=== PATIENT | male | born 1945 | race Caucasian/White ===

== ENCOUNTER 2019-11-28 10:51 | Outpatient (CLI) | payer OTHER, SELFPAY ==
[2019-11-28 11:38] LABS: Basophils Absolute Auto 0.1 K/mm3 (0.0-0.1); Basophils Percent Auto 1.4 % (0.2-1.2); Eosinophils Absolute Auto 0.1 K/mm3 (0-0.3); Eosinophils Percent Auto 1.9 % (0-4.4); Hematocrit 44.1 % (42.0-52.0); Hemoglobin 14.6 g/dL (14.0-18.0); Immature Granulocyte Absolute 0.03 K/mm3 (0.00-0.031); Immature Granulocyte Percent A 0.5 % (0-0.5); Lymphocytes Absolute Auto 1.83 K/mm3 (0.9-3.2); Lymphocytes Percent Auto 28.5 % (18.3-44.2); Mean Corpuscular HGB Conc 33.1 g/dl (32-36); Mean Corpuscular Hemoglobin 29.3 pg (26-34); Mean Corpuscular Volume 88.6 fl (80-100); Mean Platelet Volume 9.9 fl (7.4-10.4); Monocytes Absolute Auto 0.5 K/mm3 (0.1-0.6); Neutrophils Absolute Auto 3.9 K/mm3 (1.3-6.7); Neutrophils Percent Auto 60.7 % (45.5-73.1); Platelet Count Result 209 k/mm3 (150-375); Red Blood Count 4.98 M/mm3 (4.6-6.20); Red Cell Distribution Width 13.2 % (11.5-14.5); White Blood Count 6.4 K/mm3 (4.5-10.0)
[2019-11-28 11:53] LABS: Alanine Aminotransferase 18 U/L (4-50); Albumin Level 4.1 g/dL (3.5-5.1); Alkaline Phosphatase 87 U/L (38-126); Anion Gap 6 mmol/L (8-16); Aspartate Amino Transferase 22 U/L (17-59); Bilirubin,Total 0.3 mg/dL (0.2-1.3); Blood Urea Nitrogen 19 mg/dL (9-20); Calcium 8.8 mg/dL (8.4-10.2); Carbon Dioxide 31 mmol/L (22-30); Chloride 102 mmol/L (98-107); Cholesterol 178 mg/dL (0-200); Estimated Glomerular Filt Rate 59; Glucose 101 mg/dL (75-110); HDL Direct 38 mg/dL; Potassium 4.5 mmol/L (3.4-5.0); Sodium 139 mmol/L (137-145); Triglycerides 96 mg/dL (<150)
[2019-11-28 11:58] LABS: Hemoglobin A1C 5.9 % (<5.7)
[2019-11-28 12:04] LABS: LDL Cholesterol Direct 119 mg/dL
[2019-11-28 12:44] LABS: Creatinine Urine 163.1 mg/dL
[2019-11-28 12:48] LABS: MALB Creatinine Ratio 5.5 mg/g (0-30); Microalbumin Urine Random 8.9 mg/L (0-16.7)
== END 2019-11-28 10:52 | disposition home or self-care (01) ==
PROVIDERS: PCP Internal Medicine; Visit Provider Internal Medicine
DX: E78.5 Hyperlipidemia, unspecified (principal); R73.01 Impaired fasting glucose; Z86.73 Personal history of transient ischemic attack (TIA), and cerebral infarction without residual deficits; I10 Essential (primary) hypertension
CPT/HCPCS: 36415; 80053; 80061; 82043; 83036; 84443; 85025

== ENCOUNTER 2020-07-30 10:51 | Outpatient (CLI) | payer MEDICARE, SELFPAY ==
[2020-07-30 11:28] LABS: Basophils Absolute Auto 0.1 K/mm3 (0.0-0.1); Eosinophils Absolute Auto 0.1 K/mm3 (0-0.3); Eosinophils Percent Auto 1.9 % (0-4.4); Hematocrit 42.1 % (42.0-52.0); Hemoglobin 13.9 g/dL (14.0-18.0); Immature Granulocyte Absolute 0.02 K/mm3 (0.00-0.031); Immature Granulocyte Percent A 0.3 % (0-0.5); Lymphocytes Absolute Auto 1.65 K/mm3 (0.9-3.2); Lymphocytes Percent Auto 23.7 % (18.3-44.2); Mean Corpuscular Volume 90.7 fl (80-100); Mean Platelet Volume 9.3 fl (7.4-10.4); Monocytes Absolute Auto 0.6 K/mm3 (0.1-0.6); Monocytes Percent Auto 8.2 % (2.6-8.5); Neutrophils Absolute Auto 4.5 K/mm3 (1.3-6.7); Neutrophils Percent Auto 64.9 % (45.5-73.1); Platelet Count Result 204 k/mm3 (150-375); Red Blood Count 4.64 M/mm3 (4.6-6.20); Red Cell Distribution Width 13.2 % (11.5-14.5)
[2020-07-30 11:42] LABS: Alanine Aminotransferase 18 U/L (4-50); Albumin Level 3.8 g/dL (3.5-5.1); Alkaline Phosphatase 71 U/L (38-126); Anion Gap 4 mmol/L (8-16); Aspartate Amino Transferase 25 U/L (17-59); Bilirubin,Total 0.5 mg/dL (0.2-1.3); Blood Urea Nitrogen 20 mg/dL (9-20); Calcium 8.8 mg/dL (8.4-10.2); Carbon Dioxide 31 mmol/L (22-30); Chloride 105 mmol/L (98-107); Cholesterol 158 mg/dL (0-200); Estimated Glomerular Filt Rate 54; Glucose 99 mg/dL (75-110); HDL Direct 39 mg/dL; Potassium 4.4 mmol/L (3.4-5.0); Sodium 140 mmol/L (137-145); Triglycerides 93 mg/dL (<150)
[2020-07-30 11:43] LABS: Hemoglobin A1C 5.8 % (<5.7)
[2020-07-30 11:54] LABS: LDL Cholesterol Direct 98 mg/dL
[2020-07-30 12:14] LABS: Creatinine Urine 163.2 mg/dL
[2020-07-30 12:14] LABS: Prostate Specific Antigen 0.6 ng/mL (< OR = 4.0)
[2020-07-30 12:18] LABS: MALB Creatinine Ratio 5.6 mg/g (0-30); Microalbumin Urine Random 9.1 mg/L (0-16.7)
[2020-07-30 12:28] LABS: Vitamin D 25 Hydroxy 24.8 ng/mL
[2020-07-30 12:47] LABS: Folic Acid 15.1 ng/mL (2.76->20)
== END 2020-07-30 10:52 | disposition home or self-care (01) ==
PROVIDERS: PCP Internal Medicine; Visit Provider Internal Medicine
DX: E78.5 Hyperlipidemia, unspecified (principal); I10 Essential (primary) hypertension; N40.1 Benign prostatic hyperplasia with lower urinary tract symptoms; R35.0 Frequency of micturition; I72.5 Aneurysm of other precerebral arteries; I25.10 Atherosclerotic heart disease of native coronary artery without angina pectoris; R73.01 Impaired fasting glucose; G25.81 Restless legs syndrome
CPT/HCPCS: 36415; 80053; 80061; 82043; 82306; 82607; 82746; 83036; 84153; 85025; G0103

== ENCOUNTER 2020-08-06 14:07 | Outpatient (CLI) | payer MEDICARE, SELFPAY ==
--- NOTE | ~2020-08-06 | MR_ITS ---
EXAMINATION: MRA brain wo con DATE: 08/06/2020 14:54 INDICATION: Cerebral aneurysm, nonruptured. TECHNIQUE: Magnetic resonance angiography (MRA) of the brain was performed without intravenous contra st with T1-weighted SPGR by the 3D civy-sj-glzdjw technique. Maximum intensity projection 3D-reconstr uctions were obtained. COMPARISON: Brain MRA and MRI 10/08/2016 FINDINGS: There is no significant stenosis of basilar artery or the posterior cerebral arteries. 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 There is no significant stenosis of the intra cranial internal carotid arteries or anterior or middle cerebral arteries. Anterior communicating art demario is normal. The posterior communicating arteries are normal. IMPRESSION: 1. 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 Reviewed, dictated and finalized at location A.
== END 2020-08-06 14:08 | disposition home or self-care (01) ==
PROVIDERS: PCP Internal Medicine; Visit Provider Internal Medicine
DX: I67.1 Cerebral aneurysm, nonruptured (principal); Z86.73 Personal history of transient ischemic attack (TIA), and cerebral infarction without residual deficits
CPT/HCPCS: 70544

== ENCOUNTER 2021-02-14 09:07 | Outpatient (CLI) | payer MEDICARE, SELFPAY ==
[2021-02-14 09:55] LABS: Anion Gap 4 mmol/L (8-16); Blood Urea Nitrogen 19 mg/dL (9-20); Carbon Dioxide 31 mmol/L (22-30); Chloride 104 mmol/L (98-107); Estimated Glomerular Filt Rate 54; Glucose 114 mg/dL (65-110); Potassium 4.4 mmol/L (3.4-5.0); Sodium 139 mmol/L (137-145)
[2021-02-14 09:59] LABS: Hemoglobin A1C 5.8 % (<5.7)
[2021-02-14 10:13] LABS: Creatinine Urine 121.6 mg/dL
[2021-02-14 10:18] LABS: MALB Creatinine Ratio 8.3 mg/g (0-30); Microalbumin Urine Random 10.1 mg/L (0-16.7)
== END 2021-02-14 09:08 | disposition home or self-care (01) ==
PROVIDERS: PCP Internal Medicine; Visit Provider Internal Medicine
DX: R73.01 Impaired fasting glucose (principal)
CPT/HCPCS: 36415; 80048; 82043; 83036

== ENCOUNTER 2021-04-10 12:57 | Outpatient (CLI) | payer MEDICARE, SELFPAY ==
--- NOTE | ~2021-04-10 | XR_ITS ---
XR shoulder RT min 2V DATE: 04/10/2021 13:29 INDICATION: Shoulder pain TECHNIQUE: 4 views COMPARISON: None FINDINGS: Status post lower anterior cervical spine surgical fusion. Diffuse osteopenia. There is degenerative spurring at the right acromioclavicular and glenohumeral joints. No fracture or dislocation, periosteal reaction or bone destruction is detected. No abnormal right sh oulder soft tissue calcification. Right paratracheal and hilar calcified nodes consistent with old granulomatous disease. IMPRESSION: Degenerative change at the right acromioclavicular and glenohumeral joints Osteopenia Reviewed, dictated and finalized at location A. S CALIBRATOR
--- NOTE | ~2021-04-10 | XR_ITS ---
XR shoulder LT min 2V DATE: 04/10/2021 13:29 INDICATION: Left shoulder pain for 10 months TECHNIQUE: 4 views of left shoulder COMPARISON: None FINDINGS: Status post lower anterior cervical spine surgical fusion. Osteopenia. There is mild degenerative change at the left acromioclavicular joint. No fracture or dislocation, periosteal reaction or bone destruction or abnormal soft tissue calcifica tion of the left shoulder is noted. Degenerative spurring of the thoracic spine. Calcified right paratracheal and hilar lymph nodes consi stent with old granulomatous disease. IMPRESSION: Status post anterior lower cervical spine surgical fusion Osteopenia Mild degenerative change of the left acromioclavicular joint Reviewed, dictated and finalized at location A. T TENDER
== END 2021-04-10 12:58 | disposition home or self-care (01) ==
LOC: ANHIMG 13:03
PROVIDERS: PCP Internal Medicine; Visit Provider Internal Medicine
DX: M19.012 Primary osteoarthritis, left shoulder (principal); M19.011 Primary osteoarthritis, right shoulder; Z98.1 Arthrodesis status
CPT/HCPCS: 73030

== ENCOUNTER 2021-09-10 11:04 | Outpatient (CLI) | payer MEDICARE, SELFPAY ==
--- NOTE | ~2021-09-10 | XR_ITS ---
EXAMINATION: XR chest 2V 09/10/2021 12:05 INDICATION: Shortness of breath. PROCEDURE: 2 view chest COMPARISON: 10/08/2016 FINDINGS: The lungs are clear. The cardiomediastinal silhouette is within normal limits. There are no pleural effusions. There is no pneumothorax suspected. There are calcified mediastinal lymph nod es, consistent with chronic granulomatous disease. IMPRESSION: 1: NO ACUTE CARDIOPULMONARY DISEASE. Reviewed, dictated and finalized at location B.
--- NOTE | 2021-09-10 11:36 | ECG_ITS ---
Measurements Intervals Dell Rate: 80 P: 52 ID: [id number] QRS: 53 QRSD: 97 T: 81 QT: 351 QTc: 405 Interpretive Statements SINUS RHYTHM LOW QRS VOLTAGE IN PRECORDIAL LEADS ANTEROLATERAL MYOCARDIAL INFARCTION , OF INDETERMINATE AGE Electronically Signed On 09-10-2021 12:12:27 CDT by Nando Craig M.D.
[2021-09-10 11:38] LABS: Basophils Absolute Auto 0.1 K/mm3 (0.0-0.1); Basophils Percent Auto 1.1 % (0.2-1.2); Eosinophils Absolute Auto 0.1 K/mm3 (0-0.3); Eosinophils Percent Auto 1.2 % (0-4.4); Hematocrit 45.5 % (42.0-52.0); Hemoglobin 14.5 g/dL (14.0-18.0); Immature Granulocyte Absolute 0.04 K/mm3 (0.00-0.031); Immature Granulocyte Percent A 0.4 % (0-0.5); Lymphocytes Percent Auto 15.1 % (18.3-44.2); Mean Corpuscular HGB Conc 31.9 g/dl (32-36); Mean Corpuscular Hemoglobin 29.5 pg (26-34); Mean Corpuscular Volume 92.7 fl (80-100); Mean Platelet Volume 9.3 fl (7.4-10.4); Monocytes Absolute Auto 0.6 K/mm3 (0.1-0.6); Neutrophils Absolute Auto 7.1 K/mm3 (1.3-6.7); Neutrophils Percent Auto 76.2 % (45.5-73.1); Platelet Count Result 239 k/mm3 (150-375); Red Blood Count 4.91 M/mm3 (4.6-6.20); Red Cell Distribution Width 13.3 % (11.5-14.5); White Blood Count 9.3 K/mm3 (4.5-10.0)
[2021-09-10 11:47] LABS: Hemoglobin A1C 5.7 % (<5.7)
[2021-09-10 11:48] LABS: Alanine Aminotransferase 16 U/L (6-50); Albumin Level 4.1 g/dL (3.5-5.1); Alkaline Phosphatase 93 U/L (38-126); Anion Gap 4 mmol/L (8-16); Aspartate Amino Transferase 20 U/L (17-59); Bilirubin,Total 0.3 mg/dL (0.2-1.3); Blood Urea Nitrogen 15 mg/dL (9-20); Calcium 9.1 mg/dL (8.4-10.2); Carbon Dioxide 33 mmol/L (22-30); Chloride 102 mmol/L (98-107); Cholesterol 191 mg/dL (0-200); Estimated Glomerular Filt Rate 54; Glucose 116 mg/dL (65-110); HDL Direct 39 mg/dL; Potassium 5.1 mmol/L (3.4-5.0); Sodium 139 mmol/L (137-145); Triglycerides 140 mg/dL (<150)
[2021-09-10 12:00] LABS: LDL Cholesterol Direct 116 mg/dL
[2021-09-10 12:05] LABS: Creatinine Urine 167.1 mg/dL
[2021-09-10 12:07] LABS: MALB Creatinine Ratio 42.7 mg/g (0-30); Microalbumin Urine Random 71.4 mg/L (0-16.7)
[2021-09-10 12:20] LABS: Prostate Specific Antigen 0.7 ng/mL (< OR = 4.0)
[2021-09-10 12:21] LABS: Vitamin D 25 Hydroxy 35.5 ng/mL
== END 2021-09-10 11:05 | disposition home or self-care (01) ==
PROVIDERS: PCP Internal Medicine; Visit Provider Internal Medicine
DX: I10 Essential (primary) hypertension (principal); E55.9 Vitamin D deficiency, unspecified; E78.2 Mixed hyperlipidemia; E78.5 Hyperlipidemia, unspecified; G25.81 Restless legs syndrome; G62.9 Polyneuropathy, unspecified; I72.5 Aneurysm of other precerebral arteries; R73.01 Impaired fasting glucose; Z12.5 Encounter for screening for malignant neoplasm of prostate; R06.02 Shortness of breath; R94.31 Abnormal electrocardiogram [ECG] [EKG]
CPT/HCPCS: 36415; 71046; 80053; 80061; 82043; 82306; 83036; 84153; 84443; 85025; 93005; G0103

== ENCOUNTER 2021-09-26 08:01 | Outpatient (CLI) | payer MEDICARE, SELFPAY ==
--- NOTE | ~2021-09-26 | US_ITS ---
EXAMINATION: US arterial ankle brachial ind DATE: 09/26/2021 08:29 INDICATION: Peripheral vascular disease TECHNIQUE: Segmental pressures and plethysmographic and Doppler waveforms of the brachial and lower e xtremity arteries were obtained. COMPARISON: None. FINDINGS: Right and left brachial artery pressures of 140 mm Hg and 136 mm Hg, respectively, are concordant (no rmal difference <= 30 mmHg). The right ankle-brachial index (SANTOSH) is 1.09 (normal >= 0.9-1.0). The right great toe-brachial index (TBI) is 0.86 (normal >= 0.65). Arterial Doppler waveforms are biphasic with brisk systolic upstrokes at both right posterior tibial and dorsalis pedis arteries. The left SANTOSH is 1.05. The left TBI is 0.90. Arterial Doppler waveforms are biphasic with brisk systol ic upstrokes at both left posterior tibial and dorsalis pedis arteries. IMPRESSION: 1. No significant arterial occlusive disease either lower limb with normal bilateral ABIs and TBIs. Reviewed, dictated and finalized at location B. IMPRESSION: 1. No significant arterial occlusive disease either lower limb with normal bila teral ABIs and TBIs.
== END 2021-09-26 08:02 | disposition home or self-care (01) ==
PROVIDERS: PCP Internal Medicine; Visit Provider Internal Medicine
DX: I73.9 Peripheral vascular disease, unspecified (principal)
CPT/HCPCS: 93922

== ENCOUNTER 2021-09-27 13:14 | Outpatient (CLI) | payer MEDICARE, SELFPAY ==
--- NOTE | 2021-09-27 13:16 | ECHO_ITS ---
Patient Info Name: Mono Cali Age: 76 years : 1945 Gender: Male Ht: 68 in Wt: 240 lbs BSA: 2.33 m2 HR: 68 bpm BP: 133 / 86 mmHg Technical Quality: Poor Exam Date: 09/27/2021 1:48 PM Exam Location: [facility] Patient Status: Outpatient Admit Date: 09/27/2021 Staff Ordering Physician: Franko De Oliveira MD [employer] Tech: Mirian Jerome RDCS Attending Provider: Franko De Oliveira MD Exam Type: CA echo doppler color flow Study Info Indications - short of breath Complete two-dimensional, color flow and Doppler transthoracic echocardiogram is performed. Reason for Poor Study: patient body habitus Summary 1. Complete two-dimensional, color flow and Doppler transthoracic echocardiogram is performed. 2. Technically suboptimal study due to poor sonographic images. No parasternal images obtained. 3. Left ventricular chamber dimension is normal. 4. Left ventricular systolic function is normal, estimated at 55-60%. 5. There is mildly increased left ventricular wall thickness. 6. The apex appears severely hypokinetic to akinetic. Definity contrast was not administered as it was not ordered. 7. The left ventricular diastolic function is grade I diastolic dysfunction. 8. E/e' 12 is mildly elevated. 9. Mild right ventricular hypertrophy. 10. The aortic valve is not well visualized. Cannot determine number of aortic valve leaflets. Cannot determine if there is aortic stenosis or regurgitation. 11. No pulmonary hypertension, estimated pulmonary arterial systolic pressure is 31 mmHg. Left Ventricle E/e' 12 is mildly elevated. Technically suboptimal study due to poor sonographic images. No parasternal images obtained. The apex appears severely hypokinetic to akinetic. Definity contrast was not administered as it was not ordered. Left ventricular chamber dimension is normal. Left ventricular systolic function is normal, estimated at 55-60%. There is mildly increased left ventricular wall thickness. The left ventricular diastolic function is grade I diastolic dysfunction. Right Ventricle Mild right ventricular hypertrophy. Right ventricular chamber dimension is normal. Right ventricular systolic function is normal. Left Atria Left atrial chamber dimension is normal. Right Atria Right atrial chamber dimension is normal. Aortic Valve The aortic valve is not well visualized. Cannot determine number of aortic valve leaflets. Cannot determine if there is aortic stenosis or regurgitation. Pulmonic Valve The pulmonic valve is not well visualized. Mitral Valve There is no mitral valve stenosis. There is no mitral valve regurgitation. Tricuspid Valve There is no tricuspid valve regurgitation. No pulmonary hypertension, estimated pulmonary arterial systolic pressure is 31 mmHg. Pericardium/Pleural There is no pericardial effusion. Inferior Vena Cava Normal inferior vena cava with >50% collapse upon inspiration consistent with normal right atrial pressure, 5 mmHg. Aorta The aortic root size at the sinus of Valsalva is not well visualized. Left Ventricular Outflow Tract Name Value Normal LVOT Doppler LVOT Peak Gradient 5 mmHg LVOT Mean Gradient 3 mmHg
== END 2021-09-27 13:15 | disposition home or self-care (01) ==
PROVIDERS: PCP Internal Medicine; Visit Provider Internal Medicine
DX: R06.02 Shortness of breath (principal); R93.1 Abnormal findings on diagnostic imaging of heart and coronary circulation
CPT/HCPCS: 93306

== ENCOUNTER 2021-11-19 09:48 | Outpatient (CLI) | payer MEDICARE, SELFPAY ==
--- NOTE | ~2021-11-19 | NM_ITS ---
EXAMINATION: NM kyle stress w perfusion DATE: 11/19/2021 12:14 INDICATION: Shortness of breath TECHNIQUE: Rest images were obtained following intravenous administration of 9.2 mCi Tc99m tetrofosmi n (Myoview). The patient was infused intravenously with Lexiscan (Regadenoson). Then, 29.1 mCi Tc99m tetrofosmin (Myoview) was administered intravenously, and stress images were obtained in supine posit ion. Additional post stress images were obtained in the prone position. Data was reconstructed into s hort axis and horizontal and vertical long axis SPECT images. Gated SPECT images were also obtained. COMPARISON: None. FINDINGS: Moderate-sized, moderate to severe fixed perfusion defect involving the apex as well as the anterior, lateral, posterior and septal apical segments consistent with infarct. Artifactual perfusi on defect on the supine stress images along the mid anterior wall which normalizes with prone imaging . No other reversible ischemia. There is normal left ventricular chamber size, wall motion and ejecti on fraction. Left ventricular ejection fraction measures 58%. IMPRESSION: 1. Moderate-sized, moderate to severe nonreversible infarct involving the apical as well as the surro unding anterior, lateral, posterior and septal apical segments. No reversible ischemia. 2. Left ventricular ejection fraction measuring 58%. Reviewed, dictated and finalized at location A. IMPRESSION: 1. Moderate-sized, moderate to severe nonreversible infarct involving the apica l as well as the surrounding anterior, lateral, posterior and septal apical seg ments. No reversible ischemia. 2. Left ventricular ejection fraction measuring 58%.
--- NOTE | 2021-11-19 10:02 | EST_ITS ---
Patient Info Name: Mono Cali Age: 76 years : 1945 Gender: Male Ht: 68 in Wt: 240 lbs BSA: 2.33 m2 Exam Date: 11/19/2021 11:06 AM Exam Location: [facility] Stress Patient Status: Outpatient Admit Date: 11/19/2021 Staff Ordering Physician: Randall Conley DO Attending Provider: Randall Conley DO Exercise Technologist: Radha Comer RDCS Exercise Physician: Randall Conley DO Exam Type: CA stress kyle w NM Study Info Indications R06.02 - Shortness of breath A regadenoson stress test was performed. Summary 1. 1. Negative lexiscan stress test for ischemic ST changes by ECG criteria. 2. 2. Stable hemodynamics throughout the test. 3. 3. Nuclear scan to follow and will be reported separately. Please correlate with it. 4. 4. Patient informed of the above results. Protocol: Lexiscan Stress ECG Details Stage: REST Duration (min): 7 min : 3 sec HR (bpm): 75 SBP (mmHg): 121 DBP (mmHg): 68 Stage: REST Duration (min): 10 min : 37 sec HR (bpm): 72 SBP (mmHg): 121 DBP (mmHg): 68 Stage: STAGE 1 Duration (min): 0 min : 59 sec HR (bpm): 84 SBP (mmHg): 138 DBP (mmHg): 58 Stage: RECOVERY Duration (min): 1 min : 0 sec HR (bpm): 94 SBP (mmHg): 125 DBP (mmHg): 59 Stage: RECOVERY Duration (min): 2 min : 0 sec HR (bpm): 88 SBP (mmHg): 125 DBP (mmHg): 59 Stage: RECOVERY Duration (min): 3 min : 0 sec HR (bpm): 93 SBP (mmHg): 114 DBP (mmHg): 61 Stage: RECOVERY Duration (min): 4 min : 0 sec HR (bpm): 90 SBP (mmHg): 114 DBP (mmHg): 61 Stage: RECOVERY Duration (min): 5 min : 0 sec HR (bpm): 90 SBP (mmHg): 113 DBP (mmHg): 62 Stage: RECOVERY Duration (min): 5 min : 52 sec HR (bpm): 92 SBP (mmHg): 113 DBP (mmHg): 62 Rest HR: 72 bpm Peak HR: 94 bpm Rest Sys BP: 121 mmHg Peak Sys BP: 138 mmHg Max Pred HR: 145 bpm % Max Pred HR: 65 % Target HR: 123 bpm Max RPP: 12,972 bpm*mmHg Termination Reason: Completed protocol Cardiac Symptoms: Shortness of breath Total Time: 1 min : 0 sec Rest Alvarado BP: 68 mmHg Peak Alvarado BP: 58 mmHg Total Dose: 0.4 mg Resting ECG Sinus rhythm, anterolateral infarct, age indeterminate, inferior infarct, age indeterminate. Stress ECG No ST changes. Arrhythmias None. Report Signatures
== END 2021-11-19 09:49 | disposition home or self-care (01) ==
LOC: ANHCARD 09:49
PROVIDERS: PCP Internal Medicine; Visit Provider Internal Medicine Cardiovascular Disease
DX: R06.02 Shortness of breath (principal); R94.39 Abnormal result of other cardiovascular function study
CPT/HCPCS: 78452; 93017; A9502; J2785

== ENCOUNTER 2021-11-27 08:35 | Outpatient (CLI) | payer MEDICARE, SELFPAY ==
--- NOTE | 2021-12-30 17:29 | WPDSLEEPSTUD ---
Sleep Study Date of Study: 11/27/21 Ordering Provider: Randall Conley DO Interpreting Physician: Cecile Wall MD Sleep Study Type: Polysomnogram Height: 1.73 m Weight: 118.388 kg Body Mass Index: 39.6 Neck Circumference (inches): 17.5 [place]: 6 Reason for Sleep Study Restless sleep, tossing and turning Sleep History Mono Cali is a 76-year-old man with restless sleep. He says he tosses and turns, he destroys the bedding at night, and has a pounding headache. He has to have a fan circulating at night. He occasionally awakens at night feeling short of breath and having heartburn symptoms such as belching or coughing. Frequently snores loudly. Occasionally has trouble sleeping with a cold. He frequently wakes up gasping for breath at night and frequently has breathing problems at night witnessed by others. He constantly sweats excessively at night and notices his heart pounding or beating irregularly at night. He is always falling asleep during the day and falling asleep involuntarily but fortunately does not fall asleep at all while driving. He does not have loss of muscle tone with strong emotion. He does not have daytime difficulties due to excessive sleepiness. Does not feel paralyzed on waking or falling asleep. He occasionally has vivid dreamlike scenes on waking or falling asleep. He occasionally is afraid to go to sleep. He rarely has nightmares. He occasionally remembers his dreams, occasionally has racing thoughts. He occasionally has feelings of sadness or depression. He rarely has anxiety. He frequently has muscular tension and frequently notices parts of his body jerking. He frequently kicks at night. He frequently has crawling aching feelings in his legs and leg pain at night. He has no morning jaw pain. He does not grind his teeth during sleep. He occasionally is bothered by pain during the day and awakened by pain at night. He frequently wakes up feeling stiff in the morning with sore achy muscles. He always wakes up with pain in the neck and spine. He has fatigue, insomnia, memory problems constant difficulties with headaches. He takes antacids regularly. Normal bedtime is 11 pm to midnight, taking over na hour to fall asleep, waking every 2 hours for at least 5 minutes to return to sleep; he wakes at 7 am; he takes naps in the afternoon. A short nap may be refreshing. He is drowsy in the morning. He feels better in the afternoon compared to other times of day. Habits: Tobacco: quit 12 years ago. Caffeine 1 cup a day. No alcohol or recreational drugs. [facility] Past Medical History Medical History (Updated 12/30/21 @ 18:04 by Cecile Wall MD) Benign prostatic hyperplasia with urinary frequency Cataract COVID-19 vaccine series completed Deltoid tendinitis Essential hypertension History of CVA (cerebrovascular accident) Hypersomnia Morbid obesity Family History Family History Sibling Diabetes mellitus, Onset Age: 48 Cerebrovascular accident, Onset Age: 48 Mother Diabetes mellitus, Onset Age: 70 Family history of congenital heart disease, Onset Age: 70 Cerebrovascular accident, Onset Age: 70 Father Family history of alcoholism, Onset Age: 60 Family history of malignant neoplasm of gastrointestinal tract, Onset Age: 60 Social History Social History Smoking packs per day: 2 Smoking cigarettes per day: 40.0 Years smoked: 20 Smoking pack-years: 40.00 Smoking status: Former smoker Tobacco type: cigarettes Second hand tobacco smoke exposure: Yes Smoking end date: 04/06/01 Alcohol intake: never Medications Home Medications Medication Instructions Recorded Confirmed Type lisinopril 20 mg tablet 20 mg PO DAILY #90 tabs 03/06/21 12/25/21 Rx rosuvastatin 20 mg tablet (Crestor) 20 mg PO DAILY #90 tabs
[2021-12-30 17:42] VITALS: BMI 39.6
--- NOTE | 2022-02-25 09:52 | SLEEP ---
PT IS IN HOSP. SPOKE [facility] HIS MACHINE IS READY FOR SETUP.
--- NOTE | 2022-04-22 15:28 | SLEEP ---
pt returned machine
== END 2021-11-28 04:39 | disposition home or self-care (01) ==
LOC: ANHCSM 08:37
PROVIDERS: PCP Internal Medicine; Visit Provider Internal Medicine Cardiovascular Disease
DX: G47.33 Obstructive sleep apnea (adult) (pediatric) (principal); Z68.39 Body mass index [BMI] 39.0-39.9, adult; G25.89 Other specified extrapyramidal and movement disorders
CPT/HCPCS: 95810

== ENCOUNTER 2022-01-02 09:18 | Outpatient (CLI) | payer MEDICARE, SELFPAY ==
[2022-01-02 11:17] LABS: Hemoglobin A1C 5.9 % (<5.7)
[2022-01-02 11:23] LABS: Alanine Aminotransferase 22 U/L (6-50); Albumin Level 3.9 g/dL (3.5-5.1); Alkaline Phosphatase 96 U/L (38-126); Anion Gap 8 mmol/L (8-16); Aspartate Amino Transferase 23 U/L (17-59); Bilirubin,Total 0.5 mg/dL (0.2-1.3); Blood Urea Nitrogen 18 mg/dL (9-20); Calcium 8.5 mg/dL (8.4-10.2); Carbon Dioxide 28 mmol/L (22-30); Chloride 102 mmol/L (98-107); Cholesterol 193 mg/dL (0-200); Estimated Glomerular Filt Rate 54; Glucose 102 mg/dL (65-110); HDL Direct 41 mg/dL; Potassium 4.8 mmol/L (3.4-5.0); Sodium 138 mmol/L (137-145); Triglycerides 98 mg/dL (<150)
[2022-01-02 11:34] LABS: LDL Cholesterol Direct 129 mg/dL
[2022-01-02 11:53] LABS: Prostate Specific Antigen 0.8 ng/mL (< OR = 4.0)
== END 2022-01-02 09:19 | disposition home or self-care (01) ==
PROVIDERS: PCP Internal Medicine; Visit Provider Internal Medicine
DX: R73.01 Impaired fasting glucose (principal); I10 Essential (primary) hypertension; G25.81 Restless legs syndrome; E78.5 Hyperlipidemia, unspecified; Z12.5 Encounter for screening for malignant neoplasm of prostate
CPT/HCPCS: 36415; 80053; 80061; 83036; 84153; G0103

== ENCOUNTER 2022-01-14 00:43 | Day surgery (SDC) | payer MEDICARE, SELFPAY ==
[2022-01-13 13:25] VITALS: BMI 36.5
[2022-01-14] VITALS (11 sets, daily range): BP systolic 107–179; BP diastolic 72–87; PULSE 73–86; RESP 16; TEMP 36.8; O2SAT 96–100; BMI 28.0
[2022-01-14 09:00] LABS: Basophils Absolute Auto 0.1 K/mm3 (0.0-0.1); Basophils Percent Auto 1.2 % (0.2-1.2); Eosinophils Absolute Auto 0.1 K/mm3 (0-0.3); Eosinophils Percent Auto 1.6 % (0-4.4); Hematocrit 45.1 % (42.0-52.0); Hemoglobin 14.9 g/dL (14.0-18.0); Immature Granulocyte Absolute 0.07 K/mm3 (0.00-0.031); Immature Granulocyte Percent A 0.9 % (0-0.5); Lymphocytes Absolute Auto 2.17 K/mm3 (0.9-3.2); Lymphocytes Percent Auto 26.8 % (18.3-44.2); Mean Corpuscular Volume 87.7 fl (80-100); Mean Platelet Volume 9.4 fl (7.4-10.4); Monocytes Absolute Auto 0.6 K/mm3 (0.1-0.6); Monocytes Percent Auto 7.5 % (2.6-8.5); Platelet Count Result 226 k/mm3 (150-375); Red Blood Count 5.14 M/mm3 (4.6-6.20); Red Cell Distribution Width 13.6 % (11.5-14.5); White Blood Count 8.1 K/mm3 (4.5-10.0)
[2022-01-14] MEDS: ASPIRIN 81 MG CHEWABLE TABLET PO (09:01)
[2022-01-14] MEDS: CLOPIDOGREL BISULFATE 300 MG TABLET 600 MG PO (09:01)
[2022-01-14 09:16] LABS: Anion Gap 11 mmol/L (8-16); Blood Urea Nitrogen 15 mg/dL (9-20); Carbon Dioxide 31 mmol/L (22-30); Chloride 100 mmol/L (98-107); Estimated CRCL calculation 44 ml/min; Estimated Glomerular Filt Rate 54; Glucose 103 mg/dL (65-110); Potassium 4.1 mmol/L (3.4-5.0); Sodium 142 mmol/L (137-145)
--- NOTE | 2022-01-14 10:03 | WPDHPUPDATE1 ---
History and Physical Update Update Date/Time: 01/14/22 10:03 History and Physical has been reviewed, including an updated exam of the patient. There are NO changes in the patient's condition. Risks, benefits, and alternatives have been discussed and questions answered. Patient agrees to proceed with procedure.
--- NOTE | 2022-01-14 10:03 | WPDMODSED ---
Moderate Sedation Note-Pt Data Patient Data Diagnosis: Shortness of breath in the setting of abnormal stress test Present Complaint: Shortness of breath in the setting of abnormal stress test Procedure to be performed/Plan: Cardiac Cath Allergies Allergy/AdvReac Type Severity Reaction Status Date / Time No Known Allergies Allergy Verified 01/14/22 08:47 Home Medications Medication Instructions Recorded Confirmed Type lisinopril 20 mg tablet 20 mg PO DAILY #90 tabs 03/06/21 01/14/22 Rx rosuvastatin 20 mg tablet (Crestor) 20 mg PO DAILY #90 tabs 09/10/21 01/14/22 Rx aspirin 81 mg tablet,delayed 650 mg PO DAILY 11/05/21 01/14/22 History release calcium-vitamin D3 1 tablet BYMOUTH DAILY 01/13/22 01/14/22 History magnesium 1 tablet PO DAILY 01/13/22 01/14/22 History potassium 1 tablet PO DAILY 01/13/22 01/14/22 History Current Medications: Active Medications Sodium Chloride (Normal Saline Iv) 500 mls @ 100 mls/hr IV CONT .Q5H JOSE F Sedation/Anesthesia: No previous sedation/anesthesia problems (including family history). [facility] Past Medical History Medical History Benign prostatic hyperplasia with urinary frequency Cataract COVID-19 vaccine series completed Deltoid tendinitis Essential hypertension History of CVA (cerebrovascular accident) Hypersomnia Morbid obesity Restless leg Family History Family History Sibling Diabetes mellitus, Onset Age: 48 Cerebrovascular accident, Onset Age: 48 Mother Diabetes mellitus, Onset Age: 70 Family history of congenital heart disease, Onset Age: 70 Cerebrovascular accident, Onset Age: 70 Father Family history of alcoholism, Onset Age: 60 Family history of malignant neoplasm of gastrointestinal tract, Onset Age: 60 Social History Social History Smoking packs per day: 2 Smoking cigarettes per day: 40.0 Years smoked: 20 Smoking pack-years: 40.00 Smoking status: Former smoker Tobacco type: cigarettes Second hand tobacco smoke exposure: Yes Smoking end date: 04/06/01 Alcohol intake: never Substance use: never Substance use type: does not use Living arrangements: alone Mod Sed Physical Exam Physical Exam Pre Procedural Exam: Normal: Appearance, Lungs, Heart Rate, Heart Rhythm, Neuro Exam, Abdomen, Extremities and Skin Hours since solid foods: 12 Hours since liquid intake: 12 Mallampati Classification: class III Internal Medicine - PN: Obj Da Vital Signs Vital Signs: Vital Signs - 24 hr 01/14/22 08:42 Temperature 36.8 C Pulse Rate 86 Respiratory Rate 16 Blood Pressure 143/83 H Pulse Oximetry 98 Oxygen Delivery Room Air Meds/Results Medications: Active Medications Generic Name Dose Route Start Last Admin Trade Name Nestorq PRN Reason Stop Dose Admin Sodium Chloride 500 mls @ 100 mls/hr 01/14/22 07:00 Normal Saline Iv IV CONT .Q5H JOSE F Labs CBC & Chem 7: 01/14/22 08:37 01/14/22 08:37 Labs: Laboratory Results - last 24 hr 01/14/22 01/14/22 08:37 08:37 WBC 8.1 RBC 5.14 Hgb 14.9 Hct 45.1 MCV 87.7 MCH 29.0 MCHC 33.0 RDW 13.6 Plt Count 226 MPV 9.4 Immature Gran % (Auto) 0.9 H Neut % (Auto) 62.0 Lymph % (Auto) 26.8 [place] % (Auto) 7.5 Eos % (Auto) 1.6 Baso % (Auto) 1.2 Lymph # (Auto) 2.17 [place] # (Auto) 0.6 Eos # (Auto) 0.1 Baso # (Auto) 0.1 Abs Immat Gran (auto) 0.07 H Absolute Neuts (auto) 5.0 Absolute Nucleated RBC 0.0 Nucleated RBC % 0.0 Sodium 142 Potassium 4.1 Chloride 100 Carbon Dioxide 31 H Anion Gap 11 BUN 15 Creatinine 1.30 Estim Creat Clear Calc 44 Estimated GFR 54 L Glucose 103 Calcium 9.0 ASA Classification/Sedation ASA Classification/Sedation ASA Class: II Emergent: N
--- NOTE | 2022-01-14 10:04 | WPDCARDPROC ---
Cardiac Cath Procedure Note Date of procedure:: 01/14/22 Performing physician:: CATHETERIZATION LABORATORY REPORT Procedure Date: 01/14/2022 [employer] Retail[employer] Sales Consultant: Gianna Vyas M.D., [facility]? Referring Physician: Dr. Conley ? Anesthesia: Versed and Fentanyl were ordered and given in my presence at 10:15, procedure ended at 10:35. Supervision of nurse monitored moderate sedation with Versed and Fentanyl was provided for 20 minutes. Total of Versed 2 mg and Fentanyl 50 mcg were administered by the laborer high density press RN. Pre-op Diagnosis: Shortness of breath in the setting of abnormal stress test Post-op Diagnosis: Multivessel coronary artery disease, including 2-V COMPUTER TESTER Procedure(s): Coronary angiography Access Site: Right radial artery Brief History and Clinical Indications: Patient is a 76-year-old male with a history of obesity, SUZE, hypertension, and hyperlipidemia who is referred for cardiac cath for shortness of breath in the setting of abnormal stress test. Lexiscan showed moderate-sized, moderate-severe nonreversible infarct involving the apical as well as the surrounding anterior, lateral, posterior, and septal apical segments. No reversible ischemia. LVEF 58%. All risks, benefits and alternatives to left heart catheterization with or without percutaneous coronary intervention was discussed at length with the patient. Risk of complications including but not limited to bleeding, infection, arrhythmia, stroke, worsening kidney function, blood loss, groin hematoma, limb loss, emergency coronary artery bypass grafting, and even were discussed with the patient and all questions were answered. The patient understood and wished to proceed. Time out called, patient name, date of , medical record number, allergies, procedure performed, identify [employer] Retailer Sales Consultant, patient and staff member concurred with accurate data, procedure carried on. Findings: LEFT HEART CATHETERIZATION FINDINGS: 1. Left main: The left main coronary artery is widely patent without any significant obstructive disease. 2. Left anterior descending: The LAD is COMPUTER TESTER in its proximal segment. The mid-distal LAD is filled via well-formed oyeu-ym-oxof and xahyy-gq-zwcr collaterals. 3. Left circumflex: The left circumflex has mild diffuse disease. There is a high proximal OM-1 vessel without any significant obstructive angiographic disease. OM-2 has an 80% stenosis in its mid segment. 4. Right coronary artery: The RCA is the dominant vessel. The mid RCA has a 90-99% stenosis with a small aneurysmal segment followed by a COMPUTER TESTER. The distal RCA is filled via dveom-ce-annoz bridging collaterals. The RPDA is filled via bump-kx-xokld collaterals. Description of Procedure: Informed consent signed and placed in the chart. Patient transferred to laborer high density press room. Prepped and draped in usual sterile fashion. 2% lidocaine injected subcutaneously in right wrist area. 22-gauge venipuncture catheter used to access the right radial artery with the Seldinger technique. 6-FR slender sheath placed in right radial artery. Nitroglycerine and Cardene was given intraarterial through the sheath. Versacore wire advanced under fluoroscopy 5F Tig 4 diagnostic catheter engaged Left Main Coronary Artery. 5F Tig 4 diagnostic catheter engaged Right Coronary Artery Multiple orthogonal angiogram obtained and reviewed Unable to cross the aortic valve with Tig or Pigtail catheters. Hemostasis was achieved by application of TR band. ? Assessment: Multivessel coronary artery disease, including 2-V COMPUTER TESTER Post Operative Condition: Stable No significant blood loss Disposition: Home Plan: The patient will be monitored in the recovery area and discharged home after post-cath bedrest is completed. The above findings were discussed with the referring physician. Recommend CT Surgery referral for consideration of surgical bypass. Continue aggressive medical therapy and risk factor modification. Gianna Vyas
--- NOTE | 2022-01-14 11:06 | SUR.PHASEII ---
patient returned to [facility]. He is pale, diaphoretic and vomiting. aware and he has received zofran in lab. patient place on monitor. cold rags, fan and scopolomine patch applied
[2022-01-14] MEDS: SCOPOLAMINE 1.5 MG PATCH TRANSDERM (11:13)
--- NOTE | 2022-01-14 13:44 | SUR.PHASEII ---
d/c education given. all questions and concerns addressed. in depth education on s/s of bleeding in right wrist and how to hold pressure and call for help, call 911 if he has chest pain. i/v d/c tip intact. patient is still very nauseous. patient taken via wheelchair with sister to car, brother in law driving home.
== END 2022-01-14 13:49 | disposition home or self-care (01) ==
PROVIDERS: PCP Internal Medicine; Visit Provider Internal Medicine
PROC: (CPT 93454; principal; 2022-01-14 10:00)
DX: I25.10 Atherosclerotic heart disease of native coronary artery without angina pectoris (principal); R94.39 Abnormal result of other cardiovascular function study; R06.02 Shortness of breath; I10 Essential (primary) hypertension; N40.1 Benign prostatic hyperplasia with lower urinary tract symptoms; R35.0 Frequency of micturition; Z79.82 Long term (current) use of aspirin; Z87.891 Personal history of nicotine dependence
CPT/HCPCS: 36415; 80048; 85025; 93454; A9270; C1769; C1887; C1894; J1644; J2250; J2405; J3010; J7030; J7040

== ENCOUNTER 2022-04-27 22:50 | Emergency (ER) | payer MEDICARE, SELFPAY ==
--- NOTE | ~2022-04-27 | CT_ITS ---
Clinical Indication: Chest pain CT Scan of the Chest with Contrast: Technique: Contiguous sections were acquired throughout the chest after intravenous administration of 100 cc of Omnipaque 350. Dose reduction technique was used on this scan by utilizing automated expos ure control and iterative reconstruction technique. The dose-length product (DLP) was 747.88 mGy-cm. Findings: There is no evidence of any significant mediastinal, hilar or axillary lymphadenopathy. Densely calci fied right paratracheal stripe and right hilar lymph nodes are present. There is no filling defect in the pulmonary arterial tree to suggest pulmonary embolus. There is no evidence of aortic dissection or aneurysm. There is no evidence of pleural or pericardial effusion. The lungs are clear. No pulmonary nodules or infiltrates are noted. Images through the upper abdomen reveal no abnormalities. Impression: No evidence of pulmonary embolus, aortic dissection, or aortic aneurysm. Clear lungs. Reviewed, dictated and finalized at [facility]. [employer] Impression: No evidence of pulmonary embolus, aortic dissection, or aortic aneurysm. Clear lungs.
--- NOTE | ~2022-04-27 | XR_ITS ---
Clinical Indication: Chest pain PA and lateral views of the chest: Comparison: 09/10/2021 Findings: The lungs are clear, without evidence of focal consolidation or pleural effusion. Cardiome diastinal silhouette is stable, status post interval median sternotomy. Calcified right paratracheal and right hilar lymph nodes are unchanged. Bones and soft tissues are unremarkable. Impression: No acute abnormality. Stable calcified right hilar/right paratracheal lymph nodes. Reviewed, dictated and finalized at location . [facility] [employer] Impression: No acute abnormality. Stable calcified right hilar/right paratracheal lymph nodes.
--- NOTE | 2022-04-27 22:55 | ECG_ITS ---
Measurements Intervals [place] Rate: 95 P: 35 OK: 146 QRS: 65 QRSD: 98 T: 103 QT: 342 QTc: 430 Interpretive Statements SINUS RHYTHM LOW QRS VOLTAGE IN PRECORDIAL LEADS ANTEROLATERAL INFARCT, AGE INDETERMINATE BORDERLINE ST-T WAVE ABNORMALITY- HIGH LATERAL LEADS BASELINE ARTIFACT- I, II, AVR, AVL, AVF, V2-V3, V5 ABNORMAL ECG COMPARED TO ECG 09/10/2021 11:42:29 NO SIGNIFICANT CHANGES Electronically Signed On 04-28-2022 7:49:18 NURSING EDUCATOR by Randall Conley D.O.
[2022-04-27 23:01] VITALS: BP 171/94; PULSE 101; RESP 16; TEMP 36.4; O2SAT 99
[2022-04-27 23:17] LABS: Basophils Absolute Auto 0.1 K/mm3 (0.0-0.1); Basophils Percent Auto 0.8 % (0.2-1.2); Eosinophils Absolute Auto 0.1 K/mm3 (0-0.3); Eosinophils Percent Auto 1.9 % (0-4.4); Hematocrit 38.3 % (42.0-52.0); Hemoglobin 12.2 g/dL (14.0-18.0); Immature Granulocyte Absolute 0.02 K/mm3 (0.00-0.031); Immature Granulocyte Percent A 0.3 % (0-0.5); Lymphocytes Absolute Auto 2.34 K/mm3 (0.9-3.2); Lymphocytes Percent Auto 32.3 % (18.3-44.2); Mean Corpuscular HGB Conc 31.9 g/dl (32-36); Mean Corpuscular Hemoglobin 28.6 pg (26-34); Mean Corpuscular Volume 89.7 fl (80-100); Mean Platelet Volume 9.4 fl (7.4-10.4); Monocytes Absolute Auto 0.6 K/mm3 (0.1-0.6); Monocytes Percent Auto 7.9 % (2.6-8.5); Neutrophils Absolute Auto 4.1 K/mm3 (1.3-6.7); Neutrophils Percent Auto 56.8 % (45.5-73.1); Platelet Count Result 225 k/mm3 (150-375); Red Blood Count 4.27 M/mm3 (4.6-6.20); Red Cell Distribution Width 13.5 % (11.5-14.5); White Blood Count 7.2 K/mm3 (4.5-10.0)
[2022-04-27 23:27] LABS: Chloride 102 mmol/L (98-107)
[2022-04-27 23:30] LABS: Prothrombin Time 12.9 Seconds (11.1-14.7)
[2022-04-27 23:31] LABS: Partial Thromboplastin Time 31.4 SECONDS (22.3-36.8)
[2022-04-27 23:39] LABS: Troponin I < 0.012 ng/mL (0.000-0.034)
[2022-04-28 00:12] VITALS: BP 122/69; PULSE 87; RESP 20; O2SAT 100
[2022-04-28] MEDS: ASPIRIN 81 MG CHEWABLE TABLET 324 MG PO (00:13)
[2022-04-28 00:18] LABS: Alanine Aminotransferase 16 U/L (6-50); Alkaline Phosphatase 92 U/L (38-126); Anion Gap 6 mmol/L (8-16); Aspartate Amino Transferase 20 U/L (17-59); Bilirubin,Total 0.4 mg/dL (0.2-1.3); Blood Urea Nitrogen 17 mg/dL (9-20); Calcium 8.3 mg/dL (8.4-10.2); Carbon Dioxide 28 mmol/L (22-30); Estimated CRCL calculation 64 ml/min; Estimated Glomerular Filt Rate > 60; Glucose 126 mg/dL (65-110); Lipase 168 U/L (23-300); Potassium 4.5 mmol/L (3.4-5.0); Sodium 136 mmol/L (137-145)
--- NOTE | 2022-04-28 00:44 | ED.GENADULT ---
HPI - General Adult General Chief complaint: Chest Pain Stated complaint: chest pain Time Seen by Provider: 04/28/22 00:26 History of Present Illness HPI narrative: Patient is a 76-year-old gentleman who presents the emergency department with chief complaint of chest pain. Patient reports that he had a cardiac bypass back in February patient states that since then he has had some altered sensation at the incision site but states that 4 days ago he started having pain in the right side of his chest that radiates to his right axilla. Patient states the pain is sharp worse with inspiration and periodically stabs through his chest. 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 Patient waited until Thursday night because he does not like being in hospitals. The patient denies diaphoresis denies shortness of breath reports the pain is sharp and stabbing in quality Related Data Home Medications Medication Instructions Recorded Confirmed aspirin 81 mg tablet,delayed 650 mg PO DAILY 11/05/21 04/08/22 release magnesium 1 tablet PO DAILY 01/13/22 04/08/22 potassium 1 tablet PO DAILY 01/13/22 04/08/22 Allergies Allergy/AdvReac Type Severity Reaction Status Date / Time No Known Allergies Allergy Verified 04/08/22 13:48 Review of Systems Review of Systems: A 10 system review of systems was completed on the patient and is negative except for what is stated in the HPI. Nursing and ancillary documentation was reviewed. [facility] Past Medical History Medical History Benign prostatic hyperplasia with urinary frequency Cataract COVID-19 vaccine series completed Deltoid tendinitis Essential hypertension History of CVA (cerebrovascular accident) Hypersomnia Morbid obesity Restless leg Family History Family History Sibling Diabetes mellitus, Onset Age: 48 Cerebrovascular accident, Onset Age: 48 Mother Diabetes mellitus, Onset Age: 70 Family history of congenital heart disease, Onset Age: 70 Cerebrovascular accident, Onset Age: 70 Father Family history of alcoholism, Onset Age: 60 Family history of malignant neoplasm of gastrointestinal tract, Onset Age: 60 Social History Social History Smoking packs per day: 2 Smoking cigarettes per day: 40.0 Years smoked: 20 Smoking pack-years: 40.00 Smoking status: Former smoker Tobacco type: cigarettes Second hand tobacco smoke exposure: Yes Smoking end date: 04/06/01 Alcohol intake: never Substance use: never Substance use type: does not use Living arrangements: alone Exam Narrative: GENERAL: Well-appearing, well-nourished, and in no acute distress. HEAD: Normocephalic, atraumatic. EYES: PERRLA and EOMI. ENT: Nares clear, no rhinorrhea or epistaxis. Mucous membranes moist. NECK: Supple. CHEST: Clear to auscultation. No respiratory distress. Chest wall is tender to palpation of the right side of the chest HEART: Regular rate and rhythm. No murmur heard. Normal peripheral pulses. ABDOMEN: Soft, nontender, nondistended, normal active bowel sounds. EXTREMITIES: Normal range of motion. No edema. SKIN: Warm, dry, no rash. NEURO: No focal deficits. Alert and oriented x3. PSYCH: Normal mood and affect. Course Vital Signs Vital signs: Vital Signs Temperature 36.4 C L 04/27/22 23:01 Pulse Rate 101 H 04/27/22 23:01 Respiratory Rate 16 04/27/22 23:01 Blood Pressure 171/94 H 04/27/22 23:01 Pulse Oximetry 99 04/27/22 23:01 Oxygen Delivery Room Air 04/27/22 23:01 Temperature 36.4 C L 04/27/22 23:01 Pulse Rate 84 04/28/22 03:34 Respiratory Rate 18 04/28/22 03:34 Blood Pressure 126/98 H 04/28/22 03:34 Pulse Oximetry 100 04/07
[2022-04-28 01:34] VITALS: PULSE 84; RESP 20; O2SAT 98
[2022-04-28 02:07] VITALS: BP 110/76; PULSE 85; RESP 20; O2SAT 99
[2022-04-28 02:56] VITALS: O2SAT 99
[2022-04-28 03:06] LABS: NT Pro B Type Natriuretic Pept 430 pg/mL (19.9-100); Troponin I < 0.012 ng/mL (0.000-0.034)
[2022-04-28 03:16] LABS: D Dimer 1.48 ug/mL (<0.48)
[2022-04-28 03:34] VITALS: BP 126/98; PULSE 84; RESP 18; O2SAT 100
--- NOTE | 2022-04-28 03:51 | PC.NURSE ---
pt to ct via wheelchair at this time.
== END 2022-04-28 05:16 | disposition home or self-care (01) ==
PROVIDERS: Emergency Provider Emergency Medicine; PCP Internal Medicine
DX: R07.89 Other chest pain (principal); N40.1 Benign prostatic hyperplasia with lower urinary tract symptoms; R35.0 Frequency of micturition; I10 Essential (primary) hypertension; E66.01 Morbid (severe) obesity due to excess calories; Z68.37 Body mass index [BMI] 37.0-37.9, adult; G25.81 Restless legs syndrome; H26.9 Unspecified cataract; Z95.1 Presence of aortocoronary bypass graft; Z86.73 Personal history of transient ischemic attack (TIA), and cerebral infarction without residual deficits; Z87.891 Personal history of nicotine dependence; Z79.82 Long term (current) use of aspirin
CPT/HCPCS: 36415; 71046; 71275; 80053; 83690; 83880; 84484; 85025; 85380; 85610; 85730; 93005; 99284; A9270; Q9967

== ENCOUNTER 2022-06-12 10:19 | Outpatient (CLI) | payer MEDICARE, SELFPAY ==
[2022-06-12 11:51] LABS: Basophils Absolute Auto 0.1 K/mm3 (0.0-0.1); Basophils Percent Auto 1.2 % (0.2-1.2); Eosinophils Absolute Auto 0.1 K/mm3 (0-0.3); Eosinophils Percent Auto 2.1 % (0-4.4); Hematocrit 40.6 % (42.0-52.0); Hemoglobin 12.9 g/dL (14.0-18.0); Immature Granulocyte Absolute 0.01 K/mm3 (0.00-0.031); Immature Granulocyte Percent A 0.2 % (0-0.5); Lymphocytes Absolute Auto 1.64 K/mm3 (0.9-3.2); Lymphocytes Percent Auto 28.3 % (18.3-44.2); Mean Corpuscular HGB Conc 31.8 g/dl (32-36); Mean Corpuscular Hemoglobin 28.4 pg (26-34); Mean Corpuscular Volume 89.4 fl (80-100); Mean Platelet Volume 10.5 fl (7.4-10.4); Monocytes Absolute Auto 0.5 K/mm3 (0.1-0.6); Monocytes Percent Auto 9.1 % (2.6-8.5); Neutrophils Absolute Auto 3.4 K/mm3 (1.3-6.7); Neutrophils Percent Auto 59.1 % (45.5-73.1); Platelet Count Result 206 k/mm3 (150-375); Red Blood Count 4.54 M/mm3 (4.6-6.20); Red Cell Distribution Width 13.5 % (11.5-14.5); White Blood Count 5.8 K/mm3 (4.5-10.0)
== END 2022-06-12 10:20 | disposition home or self-care (01) ==
PROVIDERS: PCP Internal Medicine; Visit Provider Nurse Practitioner
DX: M25.50 Pain in unspecified joint (principal); R06.02 Shortness of breath; I10 Essential (primary) hypertension
CPT/HCPCS: 36415; 82728; 85025

== ENCOUNTER 2022-10-31 08:04 | Outpatient (CLI) | payer MEDICARE, SELFPAY ==
[2022-10-31 09:12] LABS: Alanine Aminotransferase 18 U/L (6-50); Albumin Level 3.8 g/dL (3.5-5.1); Alkaline Phosphatase 86 U/L (38-126); Anion Gap 5 mmol/L (8-16); Aspartate Amino Transferase 22 U/L (17-59); Bilirubin,Total 0.4 mg/dL (0.2-1.3); Blood Urea Nitrogen 14 mg/dL (9-20); Calcium 8.5 mg/dL (8.4-10.2); Carbon Dioxide 27 mmol/L (22-30); Chloride 106 mmol/L (98-107); Cholesterol 174 mg/dL (0-200); Estimated Glomerular Filt Rate > 60; Glucose 95 mg/dL (65-110); HDL Direct 35 mg/dL; Potassium 4.3 mmol/L (3.4-5.0); Sodium 138 mmol/L (137-145); Triglycerides 81 mg/dL (<150)
[2022-10-31 09:24] LABS: LDL Cholesterol Direct 109 mg/dL
== END 2022-10-31 08:05 | disposition home or self-care (01) ==
PROVIDERS: PCP Internal Medicine; Visit Provider Internal Medicine Cardiovascular Disease
DX: E78.5 Hyperlipidemia, unspecified (principal)
CPT/HCPCS: 36415; 80053; 80061

== ENCOUNTER 2023-01-06 08:30 | Outpatient (CLI) | payer MEDICARE, SELFPAY ==
--- NOTE | 2023-01-23 15:25 | WPDSLEEPSTUD ---
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 Only slept for 30 minutes during the study. Excessive limb movements while he was asleep. Sleep History Mono Cali is a 77-year-old man with non restorative sleep. He had a sleep study 11/26/2021, only slept 30 minutes, AHI was 12. He has a history of strokes, CABG x 3 vessels, Npv 2021, hypertension, dyslipidemia, known SUZE, M?ni?re's disease, brainstem aneurysm. He is up multiple times at night. He states that he feels that he dries out overnight, keeps a spray bottle to use on his sinuses when he awakens. He only estimates getting 1-2 hours of restful sleep on any given night. This has been going on for years. He occasionally awakens from sleep feeling short of breath. He occasionally wakes at night with heartburn, belching or coughing.?He frequently snores, occasionally snores loudly enough that others complain. He frequently has trouble sleeping when he has a cold. He rarely wakes up gasping for breath during the night. He frequently has breathing problems at night observed by others. He constantly sweats excessively at night. H frequently notices his heart pounding or beating irregularly during the night. He frequently falls asleep during the day. He frequently falls asleep involuntarily, never falls asleep while driving. He rarely experiences loss of muscle tone with strong emotion. He occasionally has daytime difficulty due to excessive sleepiness. He never feels paralyzed on waking or falling asleep. He occasionally experiences vivid dreams upon waking or falling asleep. He occasionally feels afraid of going to sleep. He rarely has nightmares. He rarely recalls his dreams. He occasionally has thoughts racing through his mind. He rarely feels sad or depressed. He occasionally feels anxiety. He constantly notices parts of his body jerk. He constantly kicks during the night. He constantly feels crawling or aching feelings in his legs. He rarely feels leg pain at night. He never has morning jaw pain, occasionally grinds his teeth at night. He frequently feels bothered by pain during the day, frequently awakened by pain during the night. He frequently wakes up feeling stiff in the morning, and he frequently wakes feeling sore or achy, and frequently awakens with pain in his neck, spine, or joints. he is an active sleeper, a tears the bedding off the mattress and sometimes pulls the mattress off to 1 side of the bed. Can not sleep in a twin bed because it will fall out and has done so in the past. He keeps a spray bottle by the bed to hydrate his sinuses often during the day and night. Normal bedtime is variable, no set bedtime., usually falling asleep After several hours. He typically gets 2 hours of sleep per night. His wake up time is variable. He wakes up 4-6 times during the night, may move to the couch, sit for a while, sometimes goes back to sleep. He takes naps in the afternoon or evening. A short nap is not refreshing. He is usually drowsy for 3 hours or longer after waking. He feels better in the afternoon compared to other times of day. Habits:??Tobacco: Quit smoking. Caffeine:none Alcohol:none Recreational substances: none PMFSH Past Medical History Medical History Benign prostatic hyperplasia with urinary frequency Cataract COVID-19 vaccine series completed Deltoid tendinitis Essential hypertension History of CVA (cerebrovascular accident) Hypersomnia Morbid obesity Pain
[2023-01-23 16:25] VITALS: BMI 36.1
== END 2023-01-07 06:53 | disposition home or self-care (01) ==
LOC: ANHCSM 08:31
PROVIDERS: PCP Internal Medicine; Visit Provider Physician Assistant
DX: G47.33 Obstructive sleep apnea (adult) (pediatric) (principal); G47.61 Periodic limb movement disorder
CPT/HCPCS: 78452; 93017; 93306; 95811; A9502

== ENCOUNTER 2023-01-07 06:52 | Outpatient (CLI) | payer MEDICARE, SELFPAY ==
--- NOTE | ~2023-01-07 | NM_ITS ---
EXAMINATION: NM kyle stress w perfusion DATE: 01/07/2023 10:48 INDICATION: Chest pain with unspecified atherosclerosis of the coronary arteries TECHNIQUE: Rest images were obtained following intravenous administration of 12.2 mCi Tc99m tetrofosm in (Myoview). The patient was infused intravenously with Lexiscan (Regadenoson). Then, 32.6 mCi Tc99m tetrofosmin (Myoview) was administered intravenously, and stress images were obtained. Data was kyara nstructed into short axis and horizontal and vertical long axis SPECT images. Gated SPECT images were also obtained. COMPARISON: None. FINDINGS: No significant interval change in a moderate-sized largely nonreversible perfusion defect, severe at the apex and extending with moderate severity into the surrounding apical septal, apical an terior, apical lateral and apical inferior segments. To the perfusion defect also appears to extend p artially into the adjacent mid anterior segment where there is a mild partially reversible defect on the current study. Similar defect on the post stress images on the prior study obtained in the supine position which normalizes with prone imaging suggesting this may still be artifactual. On imaging wa s not obtained in the current study. There is also a similar pattern of decreased activity at the bas ilar inferior segment as on the prior study which on the prior study normalized on the prior study wi th prone imaging and is likely artifactual. There is normal left ventricular chamber size, wall motio n and ejection fraction. Left ventricular ejection fraction measures 58%. IMPRESSION: 1. Unchanged moderate-sized moderate to severe nonreversible infarct involving the apical and surroun ding apical anterior, apical lateral, apical posterior and apical septal segments. 2. Small partially reversible perfusion defects at the mid anterior and basilar inferior segments wit h corresponding defects on the prior supine imaging. Although could not exclude small region of ische khadar, these regions of both normalized on the prior post stress prone imaging suggests these remain re lated to attenuation artifact. 3. Left ventricular ejection fraction measuring 58%. Reviewed, dictated and finalized at location A. IMPRESSION: 1. Unchanged moderate-sized moderate to severe nonreversible infarct involving the apical and surrounding apical anterior, apical lateral, apical posterior an d apical septal segments. 2. Small partially reversible perfusion defects at the mid anterior and basilar inferior segments with corresponding defects on the prior supine imaging. Alth ough could not exclude small region of ischemia, these regions of both normaliz ed on the prior post stress prone imaging suggests these remain related to atte nuation artifact. 3. Left ventricular ejection fraction measuring 58%.
--- NOTE | 2023-01-07 07:18 | ECHO_ITS ---
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 Strain analysis performed. Summary 1. Complete two-dimensional, color flow and Doppler transthoracic echocardiogram is performed. 2. Left ventricular chamber dimension is normal. 3. Left ventricular systolic function is normal, estimated at 65-70%. 4. Distal apex is akinetic. 5. The left ventricular diastolic function is grade I diastolic dysfunction. 6. E/e' 11 is mildly elevated. 7. Global longitudinal strain is abnormal at -10.0%. 8. The aortic valve is not well visualized. Cannot determine number of aortic valve leaflets. 9. There is mild aortic valve regurgitation. 10. No pulmonary hypertension, estimated pulmonary arterial systolic pressure is 19 mmHg. Left Ventricle E/e' 11 is mildly elevated. Global longitudinal strain is abnormal at -10.0%. Distal apex is akinetic. Left ventricular chamber dimension is normal. Left ventricular systolic function is normal, estimated at 65-70%. The left ventricular diastolic function is grade I diastolic dysfunction. Right Ventricle Right ventricular chamber dimension is normal. Right ventricular systolic function is normal. Left Atria Left atrial chamber dimension is normal. Right Atria Right atrial chamber dimension is normal. Aortic Valve The aortic valve is not well visualized. Cannot determine number of aortic valve leaflets. There is no aortic valve stenosis based on valve area and gradients. There is mild aortic valve regurgitation. Pulmonic Valve There is no pulmonic regurgitation. Mitral Valve There is no mitral valve stenosis. There is no mitral valve regurgitation. Tricuspid Valve There is no tricuspid valve regurgitation. No pulmonary hypertension, estimated pulmonary arterial systolic pressure is 19 mmHg. Pericardium/Pleural There is no pericardial effusion. Inferior Vena Cava Normal inferior vena cava with >50% collapse upon inspiration consistent with normal right atrial pressure, 5 mmHg. Aorta The aortic root size at the sinus of Valsalva is normal. Left Ventricular Outflow Tract Name Value Normal LVOT 2D LVOT Diameter 1.9 cm LVOT Doppler LVOT Peak Gradient 7 mmHg LVOT Mean Gradient 3 mmHg LVOT VTI 26 cm LVOT VTI/AV VTI Ratio 0.8 LVOT Stroke Volume 72 ml LVOT CO 4.9 l/min LVOT CI 2.0 l/min/m2
--- NOTE | 2023-01-07 07:40 | EST_ITS ---
Patient Info Name: Mono Cali Age: 77 years : 1945 Gender: Male Ht: 70 in Wt: 250 lbs BSA: 2.41 m2 HR: 72 bpm BP: 135 / 67 mmHg Heart Rhythm: Sinus Rhythm Exam Date: 01/07/2023 9:17 AM Exam Location: [facility] Stress Patient Status: Outpatient Admit Date: 01/07/2023 Staff Ordering Physician: Randall Conley DO Attending Provider: Randall Conley DO Exercise Technologist: Nuris Carlisle CT Exercise Physician: Randall Conley DO Exam Type: CA stress kyle w NM Study Info Indications I25.119 - Atherosclerotic heart disease of [place] coronary artery with unspecified angina pectoris A regadenoson stress test was performed. Summary 1. 1. Negative lexiscan stress test for ischemic ST changes by ECG criteria. 2. 2. Stable hemodynamics throughout the test. 3. 3. Nuclear scan to follow and will be reported separately. Please correlate with it. 4. 4. Patient informed of the above results. Protocol: Lexiscan Stress ECG Details Stage: REST Duration (min): 1 min : 8 sec HR (bpm): 73 SBP (mmHg): 135 DBP (mmHg): 67 Stage: REST Duration (min): 12 min : 12 sec HR (bpm): 71 SBP (mmHg): 135 DBP (mmHg): 67 Stage: STAGE 1 Duration (min): 1 min : 0 sec HR (bpm): 74 SBP (mmHg): 148 DBP (mmHg): 72 Stage: RECOVERY Duration (min): 1 min : 0 sec HR (bpm): 85 SBP (mmHg): 148 DBP (mmHg): 72 Stage: RECOVERY Duration (min): 2 min : 0 sec HR (bpm): 89 SBP (mmHg): 148 DBP (mmHg): 72 Stage: RECOVERY Duration (min): 3 min : 0 sec HR (bpm): 88 SBP (mmHg): 148 DBP (mmHg): 72 Stage: RECOVERY Duration (min): 3 min : 13 sec HR (bpm): 87 SBP (mmHg): 148 DBP (mmHg): 72 Rest HR: 71 bpm Peak HR: 90 bpm Rest Sys BP: 135 mmHg Peak Sys BP: 148 mmHg Max Pred HR: 144 bpm % Max Pred HR: 63 % Target HR: 122 bpm Max RPP: 13,320 bpm*mmHg Termination Reason: Completed protocol Cardiac Symptoms: Shortness of breath Total Time: 1 min : 0 sec Rest [place] BP: 67 mmHg Peak [place] BP: 72 mmHg Total Dose: 0.4 mg Resting ECG Sinus rhythm, anterolateral infarct, inferior infarct, age indeterminate. Stress ECG No ST changes. Arrhythmias None. Report Signatures
== END 2023-01-07 06:53 | disposition home or self-care (01) ==
PROVIDERS: PCP Internal Medicine; Visit Provider Internal Medicine Cardiovascular Disease
DX: R07.9 Chest pain, unspecified (principal); I25.810 Atherosclerosis of coronary artery bypass graft(s) without angina pectoris; R94.39 Abnormal result of other cardiovascular function study; I35.1 Nonrheumatic aortic (valve) insufficiency
CPT/HCPCS: 78452; 93017; 93306; A9502

== ENCOUNTER 2023-01-12 14:15 | Outpatient (CLI) | payer MEDICARE, SELFPAY | END 2023-01-12 14:16 | disposition home or self-care (01) | PROVIDERS: PCP Internal Medicine; Visit Provider Physician Assistant | DX: D64.9 Anemia, unspecified (principal) | CPT/HCPCS: 36415; 82728 ==

== ENCOUNTER 2023-05-08 09:27 | Outpatient (CLI) | payer MEDICARE, SELFPAY ==
[2023-05-08 10:31] LABS: Basophils Absolute Auto 0.1 K/mm3 (0.0-0.1); Basophils Percent Auto 0.9 % (0.2-1.2); Eosinophils Absolute Auto 0.2 K/mm3 (0-0.3); Eosinophils Percent Auto 2.6 % (0-4.4); Hematocrit 42.5 % (42.0-52.0); Hemoglobin 14.1 g/dL (14.0-18.0); Immature Granulocyte Absolute 0.02 K/mm3 (0.00-0.031); Immature Granulocyte Percent A 0.3 % (0-0.5); Lymphocytes Absolute Auto 1.69 K/mm3 (0.9-3.2); Lymphocytes Percent Auto 28.7 % (18.3-44.2); Mean Corpuscular HGB Conc 33.2 g/dl (32-36); Mean Corpuscular Volume 90.4 fl (80-100); Mean Platelet Volume 9.5 fl (7.4-10.4); Monocytes Absolute Auto 0.4 K/mm3 (0.1-0.6); Monocytes Percent Auto 7.5 % (2.6-8.5); Neutrophils Absolute Auto 3.5 K/mm3 (1.3-6.7); Platelet Count Result 205 k/mm3 (150-375); Red Cell Distribution Width 13.3 % (11.5-14.5); White Blood Count 5.9 K/mm3 (4.5-10.0)
[2023-05-08 10:53] LABS: Alanine Aminotransferase 16 U/L (6-50); Albumin Level 3.9 g/dL (3.5-5.1); Alkaline Phosphatase 78 U/L (38-126); Anion Gap 4 mmol/L (8-16); Aspartate Amino Transferase 23 U/L (17-59); Bilirubin,Total 0.7 mg/dL (0.2-1.3); Blood Urea Nitrogen 16 mg/dL (9-20); Calcium 8.9 mg/dL (8.4-10.2); Carbon Dioxide 29 mmol/L (22-30); Chloride 105 mmol/L (98-107); Cholesterol 173 mg/dL (0-200); Estimated Glomerular Filt Rate 59; Glucose 96 mg/dL (65-110); HDL Direct 34 mg/dL; Potassium 4.7 mmol/L (3.4-5.0); Sodium 138 mmol/L (137-145); Triglycerides 113 mg/dL (<150)
[2023-05-08 11:03] LABS: LDL Cholesterol Direct 115 mg/dL
== END 2023-05-08 09:28 | disposition home or self-care (01) ==
PROVIDERS: PCP Family Medicine; Visit Provider Family Medicine
DX: Z12.5 Encounter for screening for malignant neoplasm of prostate (principal); R53.83 Other fatigue; I10 Essential (primary) hypertension; Z13.21 Encounter for screening for nutritional disorder
CPT/HCPCS: 36415; 80053; 80061; 84443; 85025

== ENCOUNTER 2024-01-18 10:14 | Outpatient (CLI) | payer MEDICARE, SELFPAY ==
--- NOTE | ~2024-01-18 | MR_ITS ---
MRI of the lumbar spine Clinical History: Back pain Technique: Axial T2-weighted images, and sagittal T1-weighted, T2-weighted, and T2 fat-sat images wer e acquired. Findings: There is no fracture or sublocation lumbar spine. Vertebral bodies maintain normal height a nd alignment. No suspicious bone marrow signal abnormality seen. Minimal-L2, there is mild degenerative disc narrowing. There is mild disc bulge and moderate to advan susi facet arthropathy. No central canal stenosis or neural foraminal narrowing. L2-L3, there is mild degenerative disc narrowing. There is mild diffuse disc bulge and severe facet a rthropathy. No judy central canal stenosis or neural foraminal narrowing. At L3-L4, there is central disc extrusion, relatively small in size, with mild effacement of the vent ral thecal sac. There is moderate facet arthropathy. Neural foramina are mildly narrowed. At L4-L5, there is mild diffuse disc bulge, most prominent left foraminal region, with moderate to se ann facet arthropathy. No central canal stenosis. There is moderate to advanced bilateral neural for aminal narrowing. L5-S1, there is a large disc extrusion centrally, extending inferiorly, behind the S1 vertebral body, resulting in moderate to severe effacement of the thecal sac. There is advanced facet arthropathy at this level. There is advanced bilateral neural foraminal narrowing. Paravertebral soft tissues are otherwise unremarkable. 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 Small central disc extrusion at L3-L4, with minimal effacement of the ventral thecal sac. Additional moderate degenerative changes, as above, with multilevel neural foraminal narrowing, espec ially at L4-L5 and L5-S1. Reviewed, dictated and finalized at location M. 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 Small central disc extrusion at L3-L4, with minimal effacement of the ventral t hecal sac. Additional moderate degenerative changes, as above, with multilevel neural fora liliana narrowing, especially at L4-L5 and L5-S1.
== END 2024-01-18 10:15 | disposition home or self-care (01) ==
PROVIDERS: PCP Family Medicine; Visit Provider Nurse Practitioner
DX: M51.27 Other intervertebral disc displacement, lumbosacral region (principal); M51.26 Other intervertebral disc displacement, lumbar region; M47.816 Spondylosis without myelopathy or radiculopathy, lumbar region
CPT/HCPCS: 72148

== ENCOUNTER 2024-05-25 09:45 | Outpatient (CLI) | payer MEDICARE, SELFPAY ==
--- OUTSIDE RECORDS SUMMARY | 2024-05-25 09:54 | XMS_ITS | Clinical Summary ---
Author Organization [facility] Address [address] [place] [address] Care Team Providers Care Bench Worker Hollow Handle Name Role Phone Randall Conley DO Unavailable Igor Barrios DO Primary Care Provider [phone] Allergies No known active allergies Medications Potassium 99 MG tabletIndicatio ns:supplement Take 1 tablet by mouth daily. Indications: supplement 7 Active magnesium oxide (MAG-OX) 400 (240 Mg) MG tabletIndicatio ns:Stomach Pain Take 400 mg by mouth daily as needed. Indications: Stomach Ache Active aspirin EC (ECOTRIN) 81 MG tabletIndicatio ns:Aspirin Therapy Take 81 mg by mouth daily. Indications: Treatment with Aspirin Active HYDROcodone-wanda taminophen (NORCO) 5-325 MG tabletIndicatio ns:Acute Pain < 7 Day Supply Take 1 tablet by mouth every 8 (eight) hours as needed. Indications: Acute Pain < 7 Day Supply 21 tablet 2 Active metoprolol succinate ER (TOPROL XL) 12.5 mg TABLET SR 24 HR 24 hr tabletIndicatio ns:Beta-Carrington Therapy Take 1 split tab (12.5 mg total) by mouth daily. 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 Cerebrovascular accident (CVA) ([facility]) 10/14/2016 Hypertension 10/14/2016 Family History Medical History Relation Comments Alcohol Abuse Father malignant neoplasm of GI tract Father Congenital heart disease Mother Diabetes Mother Stroke Mother Relation Status Comments Father Mother Social History Tobacco Use Types Packs/Day Years Used Date Smoking Tobacco: Former Cigarettes 2 40 1 962 - 2002 Smokeless Tobacco: Never Alcohol Use Standard Drinks/Week Comments Not Currently 0 (1 standard drink = 0.6 oz pur e alcohol) Sex and Gender Information Value Date Recorded Sex Assigned at Not on file Legal Sex Male 6:27 PM CDT Gender Identity Not on file Sexual Orientation Not on file Last Filed Vital Signs Vital Sign Reading Time Taken Comments Blood Pressure 118/70 03/19/2022 9:51 AM CENSUS TAKER Pulse 70 03/19/2022 9:51 AM CENSUS TAKER Temperature 37.2 C (99 F) 03/19/2022 9:51 AM CENSUS TAKER Respiratory Rate 18 03/19/2022 9:51 AM CENSUS TAKER Oxygen Saturation 98% 03/14/2022 11:26 AM CENSUS TAKER Inhaled Oxygen Concentration - - Weight 109.8 kg (242 lb) 03/19/2022 9:51 AM CENSUS TAKER Height 175.3 cm (5' 9 ) 03/19/2022 9:51 AM CENSUS TAKER Body Mass Index 35.74 03/19/2022 9:51 AM CENSUS TAKER Plan of Treatment Health Maintenance Due Date Last Done Comments ASCVD LDL 1945 ASCVD Statin 1945 Hepatitis C 1964 DTaP, Tdap and Td Vaccines ( 1 - Tdap) 1965 Zoster Vaccines (1 of 2) 1996 Annual Medicare Wellness Visit 2011 RSV Immunization or 60+ Years (1 - 1-dose 75+ series) 2021 COVID-19 Vaccine (3 - 2023-2 5 season) 2023 07/09/2020, 06/18/2020 Influenza Adult (#1) 2024 Pneumococcal Vaccine: 65+ Years Completed 07/03/2021 Meningococcal B Vaccine Aged Out No l onger eligible based on patient's age to complete this topic Meningococcal Vaccine Aged Out No imelda lori eligible based on patient's age to complete this topic RSV Immunizations Under 20 Months Aged Out No longer eligible b ased on patient's age to complete this topic Goals Goal Patient Goal Type Associated Problems Recent Progress Patient-Stated? Author Health - patient able to perform ADLs independently Lifestyle No Katerina Valencia RN Medical Devices Implanted Type Area Uat Tester Device Identifier Shelf Expiration Date Model / Serial / Lot Suture Sternotomy Kit - [id number] Implanted:Qty: 2 on 02/17/2022 by Ta Ugarte MD at [facility] Wire N/A: Sternum [employer] 07/05/2026 [id number] / / [id number] Description:7 wires implante [place] [address] Advance Directives * Full Code (Latest Code Status on File) Date Activated Date Inactivated Comments 02/28/2022 9:41 AM * Full Code Date Activated Date Inactivated Comments 02/17/2022 2:40 PM 02/26/2022 4:31 PM Care Teams Bench Worker Hollow Handle Relationship Specialty Start Date End Date Igor Barrios DO [address] [facility] [address] [place] [address] PCP - General INTERNAL MEDICINE 01/28/22 Randall Conley DO [address] [facility] [email or web address]] [address] [place] [address] CARDIOLOGY 01/28/22
--- OUTSIDE RECORDS SUMMARY | 2024-05-25 09:54 | XMS_ITS ---
Author Name [facility] Address [address] [place], [place] Phone Organization [facility] Address [address] [place] [address] Phone Care Team Providers Care Rn Pacu Name Role Phone [facility] Unavailable [phone] TIFFANY DAUGHERTY Unavailable ALLERGIES, ADVERSE REACTIONS AND ALERTS Allergy Name Allergy Date Allergy Status Allergy Severity Allergy Reaction NO KNOWN DRUG ALLERGIES PROBLEMS Problem Code Problem Description Problem Status Proble m Date [id number] disease Heart disease Current 06/06 [id number]-Drzfeidsklmiagq lemia Hypercholesterolemia Current 07/03/2022 Z20.822-CONTACT WITH AND (SUSPECTED) EXPOSURE TO COVID-19 CONTACT WITH AND (SUSPECTED) EXPOSURE TO COVID-19 Current 07/03/2022 R09.81-NASAL CONGESTION NASAL CONGESTION Current 07/03/2022 R51.9-HEADACHE, UNSPECIFIED HEADACHE, UNSPECIFIED Current 07/03/2022 J34.89-OTHER SPECIFIED DISORDERS OF NOSE AND NASAL SINUSES OTHER SPECIFIED DISORDERS OF NOSE AND NASAL SINUSES Current 07/03/2022 [id number] artery bypass grafts x 3 Coronary artery bypass grafts x 3 Current 0 07/03/2022 J30.9-ALLERGIC RHINITIS, UNSPECIFIED ALLERGIC RHINITIS, UNSPECIFIED Current PROCEDURES Procedure Description Date Notes NO PROCEDURES PERFORMED ASSESSMENTS Assessment None PLAN OF TREATMENT Assessment Planned Activity LOINC Planned Christiano e None CONSULTATION NOTE Note Author Date None HISTORY AND PHYSICAL NOTE Note Author Date None PROGRESS NOTE Note Author Date None DISCHARGE SUMMARY Note Author Date None IMAGING NARRATIVE Note Author Date None PATHOLOGY NARRATIVE Note Author Date None CHIEF COMPLAINT AND REASON FOR VISIT FUNCTIONAL STATUS Functional or Cognitive Find ing None MENTAL STATUS Cognitive Finding None ENCOUNTERS Encounter Type Provider Diagnoses Start Date Location None SOCIAL HISTORY Social Status Observation Never Smoker Sex:Male CARE TEAM INFORMATION Rn Pacu Role Location Phone (TOM) TIFFANY DAUGHERTY NURSE PRACTITIONER [address] [place] [address] ([facility]) [facility] [address] [place], [place]
[2024-05-25 11:16] LABS: Alanine Aminotransferase 21 U/L (6-50); Albumin Level 3.8 g/dL (3.5-5.1); Alkaline Phosphatase 80 U/L (38-126); Anion Gap 4 mmol/L (4-12); Aspartate Amino Transferase 21 U/L (17-59); Bilirubin,Total 0.6 mg/dL (0.2-1.3); Blood Urea Nitrogen 17 mg/dL (9-20); Calcium 9.4 mg/dL (8.4-10.2); Carbon Dioxide 32 mmol/L (22-30); Chloride 103 mmol/L (98-107); Cholesterol 178 mg/dL (0-200); Estimated Glomerular Filt Rate > 60; Glucose 96 mg/dL (65-110); HDL Direct 37 mg/dL; Potassium 4.3 mmol/L (3.4-5.0); Sodium 139 mmol/L (137-145); Triglycerides 143 mg/dL (<150)
[2024-05-25 11:27] LABS: LDL Cholesterol Direct 115 mg/dL
[2024-05-25 11:43] LABS: Basophils Absolute Auto 0.1 K/mm3 (0.0-0.1); Basophils Percent Auto 1.1 % (0.2-1.2); Eosinophils Absolute Auto 0.1 K/mm3 (0-0.3); Eosinophils Percent Auto 1.7 % (0-4.4); Hemoglobin 14.1 g/dL (14.0-18.0); Immature Granulocyte Absolute 0.01 K/mm3 (0.00-0.031); Immature Granulocyte Percent A 0.2 % (0-0.5); Lymphocytes Absolute Auto 1.76 K/mm3 (0.9-3.2); Lymphocytes Percent Auto 26.5 % (18.3-44.2); Mean Corpuscular HGB Conc 32.8 g/dl (32-36); Mean Corpuscular Hemoglobin 30.2 pg (26-34); Mean Corpuscular Volume 92.1 fl (80-100); Monocytes Absolute Auto 0.5 K/mm3 (0.1-0.6); Monocytes Percent Auto 7.4 % (2.6-8.5); Neutrophils Absolute Auto 4.2 K/mm3 (1.3-6.7); Neutrophils Percent Auto 63.1 % (45.5-73.1); Platelet Count Result 203 k/mm3 (150-375); Red Blood Count 4.67 M/mm3 (4.6-6.20); Red Cell Distribution Width 13.2 % (11.5-14.5); White Blood Count 6.6 K/mm3 (4.5-10.0)
[2024-05-25 11:46] LABS: Prostate Specific Antigen 0.7 ng/mL (< OR = 4.0)
== END 2024-05-25 09:46 | disposition home or self-care (01) ==
PROVIDERS: PCP Family Medicine; Visit Provider Family Medicine
DX: G47.30 Sleep apnea, unspecified (principal); E66.9 Obesity, unspecified; I50.9 Heart failure, unspecified; I10 Essential (primary) hypertension; I25.10 Atherosclerotic heart disease of native coronary artery without angina pectoris; I63.9 Cerebral infarction, unspecified; N40.0 Benign prostatic hyperplasia without lower urinary tract symptoms; R35.1 Nocturia
CPT/HCPCS: 36415; 80053; 80061; 84153; 84443; 85025

== ENCOUNTER 2025-01-31 13:45 | Outpatient (CLI) | payer MEDICARE, SELFPAY ==
[2025-01-31 14:36] LABS: Hematocrit 43.6 % (42.0-52.0); Hemoglobin 14.3 g/dL (14.0-18.0); Immature Granulocyte Percent A 0.7 % (0-0.5); Lymphocytes Absolute Auto 1.91 K/mm3 (0.9-3.2); Mean Corpuscular HGB Conc 32.8 g/dl (32-36); Mean Corpuscular Hemoglobin 30.0 pg (26-34); Mean Corpuscular Volume 91.6 fl (80-100); Nucleated Red Blood Cells Absolute Auto 0.000 K/mm3 (0.0-0.012); Nucleated Red Blood Cells Perc 0.0 % (0.0-0.2); Platelet Count Result 197 k/mm3 (150-375); Red Blood Count 4.76 M/mm3 (4.6-6.20); White Blood Count 7.1 K/mm3 (4.5-10.0)
[2025-01-31 15:41] LABS: Alanine Aminotransferase 17 U/L (6-50); Albumin Level 4.1 g/dL (3.5-5.1); Alkaline Phosphatase 80 U/L (38-126); Anion Gap 5 mmol/L (4-12); Aspartate Amino Transferase 28 U/L (17-59); Bilirubin,Total 0.5 mg/dL (0.2-1.3); Blood Urea Nitrogen 21 mg/dL (9-20); Calcium 9.0 mg/dL (8.4-10.2); Carbon Dioxide 30 mmol/L (22-30); Chloride 103 mmol/L (98-107); Cholesterol 203 mg/dL (0-200); Estimated Glomerular Filt Rate 59; Glucose 84 mg/dL (65-110); HDL Direct 31 mg/dL; Potassium 4.7 mmol/L (3.4-5.0); Prostate Specific Antigen 0.7 ng/mL (< OR = 4.0); Sodium 138 mmol/L (137-145); Thyroid Stimulating Hormone 2.360 uIU/mL (0.465-4.680); Total Protein 7.6 g/dL (6.3-8.2); Triglycerides 191 mg/dL (<150)
== END 2025-01-31 13:46 | disposition home or self-care (01) ==
PROVIDERS: PCP Family Medicine; Visit Provider Family Medicine
DX: G47.30 Sleep apnea, unspecified (principal); E66.9 Obesity, unspecified; I11.0 Hypertensive heart disease with heart failure; I25.10 Atherosclerotic heart disease of native coronary artery without angina pectoris; I63.9 Cerebral infarction, unspecified; R35.1 Nocturia
CPT/HCPCS: 36415; 80053; 80061; 84153; 84443; 85025

== ENCOUNTER 2025-03-23 14:24 | Outpatient (CLI) | payer MEDICARE, SELFPAY ==
--- NOTE | 2025-03-23 14:50 | ECHO_ITS ---
Patient Info Name: Mono Cali Age: 79 years : 1945 Gender: Male Ht: 69 in Wt: 270 lbs BSA: 2.50 m2 BP: 153 / 92 mmHg Technical Quality: Fair Exam Date: 03/23/2025 2:54 PM Patient Status: O Admit Date: 03/23/2025 Exam Type: CA echo dop color flow w con Complete two-dimensional, color flow and Doppler transthoracic echocardiogram is performed with contrast to opacify the left ventricle and to improve the deliniation of the left ventricle endocardial borders. Heel Builder: Radha Comer Attending Provider: Randall Conley DO Contrast/Agitated Saline Contrast/Ag. Saline: Definity Amount: 2.00 ml New IV Access: Left and Inner Forearm Site Condition: IV removed, Site dressing applied and No extravasation Summary 1. Definity contrast administered improved wall motion interpretation. 2. Left ventricular chamber dimension is normal. 3. Left ventricular systolic function is normal, estimated at 65-70. 4. The left ventricular diastolic function is grade I diastolic dysfunction. 5. E/e' 12 is mildly elevated. 6. The aortic valve is not well visualized. Cannot determine number of aortic valve leaflets. 7. There is mild to moderate aortic valve regurgitation. 8. No pulmonary hypertension, estimated pulmonary arterial systolic pressure is 11 mmHg. Left Ventricle Definity contrast administered improved wall motion interpretation. Left ventricular chamber dimension is normal. Left ventricular systolic function is normal, estimated at 65-70. The left ventricular diastolic function is grade I diastolic dysfunction. E/e' 12 is mildly elevated. Right Ventricle Right ventricular chamber dimension is normal. Right ventricular systolic function is normal. Left Atria Left atrial chamber dimension is normal. Right Atria Right atrial chamber dimension is normal. Aortic Valve The aortic valve is not well visualized. Cannot determine number of aortic valve leaflets. There is no aortic valve stenosis. There is mild to moderate aortic valve regurgitation. Pulmonic Valve There is no pulmonic regurgitation. Mitral Valve There is no mitral valve stenosis. There is no mitral valve regurgitation. Tricuspid Valve There is no tricuspid valve regurgitation. No pulmonary hypertension, estimated pulmonary arterial systolic pressure is 11 mmHg. Pericardium/Pleural There is no pericardial effusion. Inferior Vena Cava Normal inferior vena cava with >50% collapse upon inspiration consistent with normal right atrial pressure, 5 mmHg. Aorta The aortic root size at the sinus of Valsalva is normal. Left Ventricular Outflow Tract Name Value Normal LVOT 2D LVOT Diameter 1.9 cm LVOT Doppler LVOT Peak Velocity 142 cm/s LVOT Peak Gradient 8 mmHg LVOT Mean Gradient 5 mmHg LVOT VTI 34 cm LVOT VTI/AV VTI Ratio 0.9 LVOT Stroke Volume 100 ml LVOT CO 7.1 l/min LVOT CI 2.8 l/min/m2 Mitral Valve Name Value Normal MV Diastolic Function MV E Peak Velocity 83 cm/s MV A Peak Velocity 98 cm/s MV E/A 0.9 MV Decel Time (PW) 276 ms Tricuspid Valve Name Value Normal TV Regurgitation Doppler TR Peak Velocity 127 cm/s TR Peak Gradient 6 mmHg Estimated PAP/RSVP RA Pressure 5 mmHg <=5 PA Systolic Pressure 11 mmHg <36 RV Systolic Pressure 11 mmHg <36 Aortic Valve Name Value Normal AV Doppler AV Peak Velocity 170 cm/s AV Peak Gradient 12 mmHg AV Mean Gradient 7 mmHg AV VTI 37 cm AV Area (Cont Eq VTI) 2.7 cm2 >=3.0 AV Area (Cont Eq Itmbo) 2.5 cm2 AV DI (Timbo) 0.83 AV Regurgitation 2D LVOT Area 3.0 cm2 Ventricles Name Value Normal LV Dimensions 2D/MM IVS Diastolic Thickness (2D) 1.1 cm 0.6-1.0 LVID Diastole (2D) 3.3 cm 4.2-5.8 LVIW Diastolic Thickness (2D) 1.2 cm 0.6-1.0 LVID Systole (2D) 2.2 cm 2.5-4.0 LVOT Diameter 1.9 cm LV Mass (2D Cubed) 114.68 g 88.00-224.00 LV Mass Index (2D Cubed) 46 g/m2 49-115 Relative Wall Thickness (2D) 0.71 <=0.42 LV Fractional Shortening/Ejection Fraction 2D/MM LV Fractional Shortening (2D) 36 % 25-43 LV EF (2D Teichholz) 66 % LV Diastolic Volume (4C MOD) 90 ml LV EF (4C MOD) 70 % LV Diastolic Volume (2C MOD) 92 ml LV EF (2C MOD) 82 % LV Diastolic Volume (BP MOD) 92 ml 62-150 LV Diastolic Volume Index (BP MOD) 37 ml/m2 34-74 LV Systolic Volume (BP MOD) 25 ml 21-61 LV Systolic Volume Index (BP MOD) 10 ml/m2 11-31 LV EF (BP MOD) 73 % 52-72 LV Diastolic Length (4C) 9.0 cm LV Systolic Length (4C) 8.7 cm LV Stroke Volume (4C MOD) 63 ml Atria Name Value Normal LA Dimensions LA Volume (4C A-L) 28 ml LA Volume (BP A-L) 27 ml RA Dimensions RA Systolic Major Henriette Length (4C) 5.5 cm 2.1-2.7 RA Area (4C) 14.0 cm2 <=18.0 Report Signatures
[2025-03-23] MEDS: PERFLUTREN LIPID MICROSPHERES 1.5 ML VIAL DILUTED TO 10 ML TOTAL VOLUME IV PUSH (15:25)
--- OUTSIDE RECORDS SUMMARY | 2025-03-23 15:30 | XMS_ITS ---
Author Name [facility] Address [address] [place], [place] Phone Organization [facility] Address [address] [place] [address] Phone Care Team Providers Care Cocoa Roaster Name Role Phone [facility] Unavailable [phone] TIFFANY DAUGHERTY Unavailable ALLERGIES, ADVERSE REACTIONS AND ALERTS Allergy Name Allergy Date Allergy Status Allergy Severity Allergy Reaction NO KNOWN DRUG ALLERGIES PROBLEMS Problem Code Problem Description Problem Status Problem Da te Problem End Date [id number] disease Heart disease Current 07/03/2022 [id number] esterolemia Hypercholesterolemia Current 07/03/2022 Z20.822-CONTACT WITH AND (SUSPECTED) EXPOSURE TO COVID-19 CONTACT WITH AND (SUSPECTED) EXPOSURE TO COVID-19 Current 07/03/2022 R09.81-NASAL CONGESTION NASAL CONGESTION Current 07/03/2022 R51.9-HEADACHE, UNSPECIFIED HEADACHE, UNSPECIFIED Current 07/03/2022 J34.89-OTHER SPECIFIED DISORDERS OF NOSE AND NASAL SINUSES OTHER SPECIFIED DISORDERS OF NOSE AND NASAL SINUSES Current 07/03/2022 [id number] artery bypass grafts x 3 Coronary artery bypass grafts x 3 Current 07/03/2022 J30.9-ALLERGIC RHINITIS, UNSPECIFIED ALLERGIC RHINITIS, UNSPECIFIED Current 07/03/2022 PROCEDURES Procedure Description Date Notes NO PROCEDURES PERFORMED ASSESSMENTS Assessment None PLAN OF TREATMENT Assessment Planned Activity LOINC Planned Christiano e None CONSULTATION NOTE Note Author Date None HISTORY AND PHYSICAL NOTE Note Author Date None PROGRESS NOTE Note Author Date None DISCHARGE SUMMARY Note Author Date None CHIEF COMPLAINT AND REASON FOR VISIT FUNCTIONAL STATUS Functional or Cognitive Find ing None MENTAL STATUS Cognitive Finding None ENCOUNTERS Encounter Type Provider Diagnoses Start Date Location Disc harged to None SOCIAL HISTORY Social Status Observation Never Smoker Sex: Male CARE TEAM INFORMATION Cocoa Roaster Provider ID Role Location Phone [facility] [address], [place], [place] TIFFANY DAUGHERTY [phone] NURSE PRACTITIONER [address], [place] [address] INSURANCE PROVIDERS Payer Name Policy type / Coverage type Covered alliance party ID Policy Guillaume [employer] MEDICARE Private Health Insurance [id number] LEWIS Hernandez
--- NOTE | 2025-03-23 15:37 | IVDEFINITY ---
Prior to administration of IV Definity the patient was educated on the risks and benefits of the imaging enhancing agent including potential adverse side effects. The patient verbalized understanding. Allergies were verified. No exclusion criteria were identified and at least one of the following inclusion criteria were met: 1) physician request, 2) patient technically difficult to image (per the [place] [employer] Echocardi[employer] guidelines of two or more segments not discernable within the apical view), or 3) questionable left ventricular function. ?
== END 2025-03-23 14:25 | disposition home or self-care (01) ==
PROVIDERS: PCP Family Medicine; Visit Provider Internal Medicine Cardiovascular Disease
DX: R06.81 Apnea, not elsewhere classified (principal); R93.1 Abnormal findings on diagnostic imaging of heart and coronary circulation
CPT/HCPCS: C8929; Q9957